=== PATIENT | male | born 1970 | race African-American/Black ===

== ENCOUNTER 2017-07-25 07:48 | Emergency (ER) | payer SELFPAY ==
[~2017-07-25] VITALS: Ht 185.4 cm; Wt 101.2 kg
[2017-07-25] MEDS ORDERED: NO HOME MEDICATION XX (07:53)
[2017-07-25] MEDS ORDERED: NORCO 5-325 TA1 EACH PO (08:11)
[2017-07-25] MEDS ORDERED: AMOXICILLIN500 M2 PO (08:11)
== END 2017-07-25 08:34 ==
LOC: EDMED 07:48
DX: K08.89 Other specified disorders of teeth and supporting structures (principal)